=== PATIENT | male | born 1970 | race Two or more races ===

== ENCOUNTER 2017-04-22 13:38 | Emergency (ER) | payer OTHER ==
[~2017-04-22] VITALS: Ht 162.6 cm; Wt 81.6 kg
[2017-04-22] MEDS ORDERED: LIPITOR40 MG ORAL (13:49)
[2017-04-22] MEDS ORDERED: Albuterol ud Inhalation HHN ONE (14:00)
[2017-04-22] MEDS ORDERED: Ipratropium 0.02% Inh Soln 2.5ml UD HHN ONE (14:00)
[2017-04-22] MEDS ORDERED: PROAIR HFA8.5 GM INH (14:53)
[2017-04-22] MEDS ORDERED: IBUPROFEN600 MG ORAL (14:53)
[2017-04-22] MEDS ORDERED: PROMETHAZINE-C118 M1 ORAL (14:53)
[2017-04-22 15:02] VITALS: BP 115/76
--- NOTE | 2017-04-22 21:45 | Emergency Room Report ---
History of Present Illness General Chief Complaint: Upper Respiratory Illness Source: Patient (DARYL ALMANZAR) Present Illness HPI The patient is a 47 old male presenting for 5 days of coughing. He denies any known sick contacts or recent travel. He is experiencing an 8/10 dull ache to the mid chest which occurs with coughing only. Does not radiate. Also admits to subjective fever. He has tried [id number] medications which temporarily helped. He denies any other symptoms including hemoptysis, myalgia , CARLISLE, sore throat (DARYL ALMANZAR) Allergies: Coded Allergies: No Known Allergies (Unverified , 04/22/17) Patient History Past Medical History: see triage record Pertinent Family History: none Reviewed Nursing Documentation: PMH: Agreed, PSxH: Agreed (DARYL ALMANZAR) Review of Systems All Other Systems: negative except mentioned in HPI (DARYL ALMANZAR) Physical Exam Vital Signs Date Time Temp Pulse Resp B/P (MAP) Pulse Ox O2 Delivery O2 Flow Rate FiO2 04/22/17 13:43 100.0 95 20 112/71 93 Room Air 04/22/17 14:01 21 Sp02 EP Interpretation: reviewed, normal General Appearance: no apparent distress, alert, GCS 15, non-toxic Head: normocephalic, atraumatic Eyes: bilateral eye normal inspection, bilateral eye PERRL ENT: hearing grossly normal, normal pharynx, no angioedema, normal voice Neck: full range of motion, supple/symm/no masses Respiratory: no accessory muscle use, decreased breath sounds, wheezing - bilat Cardiovascular #1: regular rate, rhythm, no edema Musculoskeletal: back normal, gait/station normal, normal range of motion, non- tender Neurologic: alert, oriented x3, responsive, motor strength/tone normal, sensory intact, speech normal Psychiatric: judgement/insight normal, memory normal, mood/affect normal, no suicidal/homicidal ideation Skin: normal color, no rash, warm/dry, well hydrated Lymphatic: no adenopathy (DARYL ALMANZAR) Medical Decision Making PA Attestation Dr. Gorman is my supervising physician. Patient management was discussed with my supervising physician (DARYL ALMANZAR) Diagnostic Impression: Primary Impression: Acute bronchitis Qualified Codes: J20.9 - Acute bronchitis, unspecified ER Course The patient is a 47 old male presenting for 5 days of coughing. Differential diagnosis include but not limited to pharyngitis, sinusitis, AOM, bronchitis, PNA PE: afebrile. No tachypnea. No apparent distress. No TTP over maxillary or frontal sinuses. Lungs: diffuse wheezing. No accessory muscle use. No resp distress Heart: RRR, no abnormal heart sounds Ears: external auditory canal clear. Non erythematous. Bilat TM intact. Cone of light present bilat. No bulging of TM. No serous fluid seen. no nasal D/C No cervical lymphad No tonsillar exudate. Uvula midline.Oropharynx non erythematous CXR shows no acute findings Pt is given breathing Tx and feels better. Lung sounds have improved The patient will be discharged home with a prescription for albuterol, cough medication, motrin. ER precautions given (DARYL ALMANZAR P.A.) Chest X-Ray Diagnostic Results Chest X-Ray Diagnostic Results : Chest X-Ray Ordered: Yes # of Views/Limited/Complete: 1 View Indication: Other - cough PA Xray: Interpretation reviewed, by supervising MD, and agrees with findings. Interpretation: no consolidation, no effusion, no pneumothorax, no acute cardiopulmonary disease Impression: No acute disease Electronically Signed by: Daryl Almanzar PA-C (DARYL ALMANZAR P.A.) Chest X-Ray Diagnostic Results : PA Xray: Interpretation reviewed, by supervising MD, and agrees with findings. - Glenn Vences MD (Glenn Vences M.D.) Last Vital Signs Date Time Temp Pulse Resp B/P (MAP) Pulse Ox O2 Delivery O2 Flow Rate FiO2 04/22/17 15:02 99 20 115/76 95 Room Air 04/22/17 14:37 21 04/22/17 14:19 100.3 Status: improved (DARYL ALMANZAR P.A.) Disposition: HOME, SELF-CARE Condition: Improved Scripts Albuterol Sulfate* (PROAIR HFA*) 8.5 Gm Hfa.aer.ad 2 PUFFS INH Q6H, #8.5 GM 0 Refills Prov: DARYL ALMANZAR PCesario 04/22/17 Codeine/Promethazine Hcl* (PROMETHAZINE-CODEINE SYRUP*) 118 Ml Syrup 5 ML ORAL Q6H Y for For Cough, #118 ML 0 Refills Prov: DARYL ALMANZAR.Uche 04/22/17 Ibuprofen* (MOTRIN*) 600 Mg Tablet 600 MG ORAL Q8H Y for For Pain, #30 TAB 0 Refills Prov: DARYL ALMANZARA. 04/22/17 Referrals: NON PHYSICIAN [facility],REFERRING (PCP) Patient Instructions: Acute Bronchitis Additional Instructions: I discussed my findings with the patient. All questions and concerns have been answered. Treatment and medication compliance have been addressed. I advised the patient that they need to follow up with PMD in 3-5 days. Return to ED if pain remains or worsens, cough worsens or remains, you notice blood in your sputum, you notice wheezing, you experience a fever, or if needed for any reason. Patient verbalized understanding of discharge instructions. DARYL ALMANZAR Apr 22, 2017 21:45 Glenn Vences M.D. Apr 24, 2017 15:13
--- NOTE | 2017-04-23 10:53 | Diagnostic Imaging Report ---
Indication: Cough Comparison: None A single view chest radiograph was obtained. Findings: Cardiomediastinal appearance is within normal limits for age. Pulmonary vascularity is appropriate. The diaphragmatic contour is smooth and costophrenic angles are sharp. No pleural effusions are identified. The bones are unremarkable. Impression: No acute findings
== END 2017-04-22 15:04 | disposition home or self-care (01) ==
LOC: EMR 14:16
DX: J20.9 Acute bronchitis, unspecified (principal)
CPT/HCPCS: 71045; 94640; 99284

== ENCOUNTER 2018-05-13 15:10 | Emergency (ER) | payer OTHER ==
[~2018-05-13] VITALS: Ht 162.6 cm; Wt 90.7 kg
[~2018-05-13 15:10] MED LIST: IBUPROFEN600 MG ORAL; LIPITOR40 MG ORAL; PROAIR HFA8.5 GM INH; PROMETHAZINE-C118 M1 ORAL
[2018-05-13 15:23] VITALS: BP 124/82
--- NOTE | 2018-05-13 15:29 | Emergency Room Report ---
History of Present Illness General Chief Complaint: Abdominal Pain Source: Patient Present Illness Allergies: Coded Allergies: No Known Allergies (Unverified , 05/13/18) Nursing Documentation-[facility] Past Medical History: No History, Except For Physical Exam Vital Signs Date Time Temp Pulse Resp B/P (MAP) Pulse Ox O2 Delivery O2 Flow Rate FiO2 05/13/18 15:23 98.4 99 16 124/82 94 Room Air Medical Decision Making PA Attestation Dr. Vences is my supervising Physician whom patient management has been discussed with. Diagnostic Impression: Primary Impression: Enteritis Labs Test 05/13/18 15:40 05/13/18 15:45 White Blood Count 15.2 K/UL (4.8-10.8) Red Blood Count 4.99 M/UL (4.70-6.10) Hemoglobin 15.1 G/DL (14.2-18.0) Hematocrit 43.1 % (42.0-52.0) Mean Corpuscular Volume 86 FL (80-99) Mean Corpuscular Hemoglobin 30.3 PG (27.0-31.0) Mean Corpuscular Hemoglobin Concent 35.1 G/DL (32.0-36.0) Red Cell Distribution Width 12.2 % (11.6-14.8) Platelet Count 285 K/UL (150-450) Mean Platelet Volume 6.1 FL (6.5-10.1) Neutrophils (%) (Auto) 65.5 % (45.0-75.0) Lymphocytes (%) (Auto) 22.9 % (20.0-45.0) Monocytes (%) (Auto) 6.2 % (1.0-10.0) Eosinophils (%) (Auto) 4.5 % (0.0-3.0) Basophils (%) (Auto) 0.9 % (0.0-2.0) Sodium Level 140 MMOL/L (136-145) Potassium Level 3.7 MMOL/L (3.5-5.1) Chloride Level 104 MMOL/L (98-107) Carbon Dioxide Level 28 MMOL/L (21-32) Anion Gap 8 mmol/L (5-15) Blood Urea Nitrogen 14 mg/dL (7-18) Creatinine 0.9 MG/DL (0.55-1.30) Estimat Glomerular Filtration Rate > 60 mL/min (>60) Glucose Level 126 MG/DL (74-106) Calcium Level 9.0 MG/DL (8.5-10.1) Total Bilirubin 0.3 MG/DL (0.2-1.0) Aspartate Amino Transf (AST/SGOT) 18 U/L (15-37) Alanine Aminotransferase (ALT/SGPT) 31 U/L (12-78) Alkaline Phosphatase 113 U/L (46-116) Total Protein 8.3 G/DL (6.4-8.2) Albumin 3.8 G/DL (3.4-5.0) Globulin 4.5 g/dL Albumin/Globulin Ratio 0.8 (1.0-2.7) Lipase 148 U/L (73-393) Urine Color Yellow Urine Appearance Clear Urine pH 6.5 (4.5-8.0) Urine Specific [place] 1.015 (1.005-1.035) Urine Protein Negative (NEGATIVE) Urine Glucose (UA) Negative (NEGATIVE) Urine Ketones Negative (NEGATIVE) Urine Blood Negative (NEGATIVE) Urine Nitrite Negative (NEGATIVE) Urine Bilirubin Negative (NEGATIVE) Urine Urobilinogen Normal MG/DL (0.0-1.0) Urine Leukocyte Esterase 1+ (NEGATIVE) Urine RBC 0-2 /HPF (0 - 0) Urine WBC 2-4 /HPF (0 - 0) Urine Squamous Epithelial Cells None /LPF (NONE/OCC) Urine Bacteria Few /HPF (NONE) Last Vital Signs Date Time Temp Pulse Resp B/P (MAP) Pulse Ox O2 Delivery O2 Flow Rate FiO2 05/13/18 15:23 98.4 99 16 124/82 94 Room Air Disposition: HOME, SELF-CARE Condition: Stable Patient Instructions: Abdominal Pain, Adult Additional Instructions: Take medications as directed. Follow up with a Primary Care Provider in 3-5 days, even if your symptoms have resolved. --Please review list of primary care clinics, if you do not already have a primary care provider Return sooner to ED if new symptoms occur, or current symptoms become worse. - Please note that this Emergency Department Report was dictated using [employer] nurse technology software, occasionally this can lead to erroneous entry secondary to interpretation by the dictation equipment. Whit Aggarwal May 13, 2018 15:28
--- NOTE | 2018-05-13 15:58 | NUR ---
ED Nurse Note: PT. AAOX4. AMBULATORY. C/O RLQ PAIN WITH BURNING SENSATION DURING URINATION. PT LAST BM WAS THIS MORNING. DENIES DIARRHEA
[2018-05-13 16:10] LABS: APPEARANCE,URINE CLEAR; BILIRUBIN, URINE NEGATIVE (NEGATIVE); GLUCOSE, URINE (UA) NEGATIVE (NEGATIVE); KETONES,URINE NEGATIVE (NEGATIVE); LEUKOCYTE ESTERASE ,URINE 1+ (NEGATIVE); NITRITE,URINE NEGATIVE (NEGATIVE); PH,URINE 6.5 (4.5-8.0); PROTEIN,URINE NEGATIVE (NEGATIVE); UROBILINOGEN,URINE NORMAL MG/DL (0.0-1.0)
[2018-05-13 16:13] LABS: COLOR,URINE YELLOW
[2018-05-13 16:15] LABS: BASOPHILS % (AUTO) 0.9 % (0.0-2.0); EOSINOPHILS % (AUTO) 4.5 % (0.0-3.0); HEMATOCRIT 43.1 % (42.0-52.0); HEMOGLOBIN 15.1 G/DL (14.2-18.0); LYMPHOCYTES % (AUTO) 22.9 % (20.0-45.0); MEAN CORPUSCULAR VOLUME 86 FL (80-99); MONOCYTES % (AUTO) 6.2 % (1.0-10.0); NEUTROPHILS % (AUTO) 65.5 % (45.0-75.0); PLATELET COUNT 285 K/UL (150-450); RED BLOOD COUNT 4.99 M/UL (4.70-6.10); RED CELL DISTRIBUTION WIDTH 12.2 % (11.6-14.8); WHITE BLOOD COUNT 15.2 K/UL (4.8-10.8)
[2018-05-13 16:16] LABS: ANION GAP 8 mmol/L (5-15); BLOOD UREA NITROGEN 14 mg/dL (7-18); CARBON DIOXIDE 28 MMOL/L (21-32); CHLORIDE 104 MMOL/L (98-107); CREATININE 0.9 MG/DL (0.55-1.30); POTASSIUM 3.7 MMOL/L (3.5-5.1); SODIUM 140 MMOL/L (136-145)
[2018-05-13 16:28] LABS: ALANINE AMINOTRANSFERASE 31 U/L (12-78); ALBUMIN 3.8 G/DL (3.4-5.0); ALBUMIN/GLOBULIN RATIO 0.8 (1.0-2.7); ALKALINE PHOSPHATASE 113 U/L (46-116); ASPARTATE AMINO TRANSFERASE 18 U/L (15-37); BILIRUBIN,TOTAL 0.3 MG/DL (0.2-1.0)
--- NOTE | 2018-05-13 17:01 | Diagnostic Imaging Report ---
Indication: Abdominal pain Technique: Rouse-scale and duplex images of the upper abdomen were obtained. Doppler interrogation of the hepatic and pancreatic vessels Comparison: none Findings: Exam is somewhat limited due to patient body habitus and overlying bowel gas. Gallbladder is nondistended. No definite stones. There is equivocal mild wall thickening, probably an artifact of under distention. No pericholecystic fluid. Sonographic Day's sign is negative. Common bile duct measures 2 mm in diameter. No intrahepatic biliary ductal dilatation. Liver demonstrates diffusely increased echogenicity, consistent with diffuse hepatocellular disease, most likely fatty change. Portal vein and hepatic veins are patent. Pancreas is obscured by bowel gas. Spleen is unremarkable. Left kidney measures 11.9 cm in length. Right kidney measures 12 cm length. Both kidneys demonstrate normal echogenicity. There is no hydronephrosis. No focal abnormality . Abdominal aorta is partially obscured by bowel gas, visualized portions are non-aneurysmal . Impression: Limited exam as described. Note inability to visualize the pancreas and portions of the abdominal aorta Negative for gallstones or dilated bile ducts. Apparent mild gallbladder wall thickening is probably an artifact of under distention Liver demonstrates diffusely increased echogenicity, consistent with diffuse hepatocellular disease, most likely fatty change.
[2018-05-13] MEDS ORDERED: Morphine Sulfate 2mg/ml Inj(IV/IM USE ONLY) IVP ONE (17:15)
[2018-05-13] MEDS ORDERED: Isovue-300 100ml vial INJ PRN (17:15)
--- NOTE | 2018-05-13 19:05 | NUR ---
ED Nurse Note: Received Pt and report from day shift. Knowing Pt will DC soon, will prepare DC papers.
[2018-05-13] MEDS ORDERED: LEVOFLOXACIN500 MG ORAL (19:20)
[2018-05-13] MEDS ORDERED: LIDOCAINE VISC100 ML ORAL (19:20)
[2018-05-13] MEDS ORDERED: METRONIDAZOLE250 MG ORAL (19:20)
[2018-05-13] MEDS ORDERED: NORCO 5-325 TA1 EACH ORAL (19:20)
[2018-05-13 19:30] VITALS: BP 133/78
--- NOTE | 2018-05-13 19:30 | NUR ---
ER DISCHARGE NOTE: Patient is cleared to be discharged per ERMD, pt is aox4, on room air, with stable vital signs. pt was given dc and prescription instructions, pt was able to verbalize understanding, pt id band and iv site removed without complications. pt is able to ambulate with steady gait. pt took all belongings.
--- NOTE | 2018-05-14 09:17 | Diagnostic Imaging Report ---
Clinical Indication: And lower quadrant pain with burning sensation Technique: No oral contrast utilized, per emergency room physician request IV administration nonionic contrast. Venous phase spiral acquisition obtained through the abdomen and pelvis. Multiplanar reconstructions were generated. Total dose length product 1037.93 mGycm. CTDIvol(s) 18.84 mGy. Dose reduction achieved using automated exposure control Comparison: none Findings: The appendix is normal. There are scattered colonic diverticula. No evidence of diverticulitis. Distal small bowel loops are mildly prominent in caliber and fluid-filled, but not frankly distended. No free or loculated intraperitoneal gas or fluid is evident. The distal esophagus, stomach, duodenum are unremarkable. No retroperitoneal or mesenteric mass or adenopathy. No pelvic mass or adenopathy. The liver, gallbladder, bile ducts, pancreas, spleen, adrenals, kidneys are unremarkable. No pelvic mass or adenopathy. No retroperitoneal or mesenteric mass or adenopathy. The bladder wall appears mildly thickened, but this is probably an artifact of under distention The included lung bases demonstrate a calcified granuloma on the right. There is a 3 mm intrafissural nodule on the left, most likely an intrafissural lymph node. They are otherwise clear. The bones are unremarkable. Impression: Apparent bladder wall thickening. Most likely artifact of under distention, but possibly cystitis should be considered. Correlate with clinical and laboratory findings. Mildly prominent fluid-filled distal small bowel loops. May be baseline for this patient or could indicate minimal enteritis changes. Correlate with clinical findings No acute process otherwise Evidence of old granulomatous disease at the right lung base This agrees with the preliminary interpretation provided overnight by [facility] telerad[facility] service. The CT scanner at [facility] is accredited by the [employer] and the scans are performed using protocols designed to limit radiation exposure to as low as reasonably achievable to attain images of sufficient resolution adequate for diagnostic evaluation.
== END 2018-05-13 19:30 | disposition home or self-care (01) ==
LOC: EMR 15:58
DX: K52.9 Noninfective gastroenteritis and colitis, unspecified (principal)
CPT/HCPCS: 36415; 74177; 76700; 80053; 81003; 83690; 85025; 96374; 99284; J2270; Q9967

== ENCOUNTER 2018-09-29 21:48 | Emergency (ER) | payer OTHER ==
[~2018-09-29] VITALS: Ht 162.6 cm; Wt 94.3 kg
[~2018-09-29 21:48] MED LIST changes: +LEVOFLOXACIN500 MG ORAL; +LIDOCAINE VISC100 ML ORAL; +METRONIDAZOLE250 MG ORAL; +NORCO 5-325 TA1 EACH ORAL
--- NOTE | 2018-09-29 21:59 | NUR ---
ED Nurse Note: pt walked in c/o left side weakness s/p fall, pt states he was walking down stairs and fell, denies weakness or dizziness, denies head injury nor loc, no obvious deformity nor open wound, noted minor scrape on left shoulder and redness on left rib area, will cont monitor.
[2018-09-29] MEDS ORDERED: HYDROcodone/Acetamin 5/325 tab ORAL ONE (22:00)
--- NOTE | 2018-09-29 22:03 | Emergency Room Report ---
History of Present Illness General Chief Complaint: Multiple Trauma/Fall Source: Patient Present Illness HPI This is a 48-year-old male with no past medical history. He presents with left rib pain. Around noon today he slipped and fell and when he tried to get up he slipped again and landed on the floor. He now complains of left rib pain. Worse when he took a deep breath. Worse when he moves. Pain is 8 out of 10. No nausea no vomiting. Did not pass out. No other injury other than twisted his right ankle. Is able to walk on it without any problem. Allergies: Coded Allergies: No Known Allergies (Unverified , 05/13/18) Patient History Past Medical History: see triage record, old chart reviewed Past Surgical History: none Pertinent Family History: none Social History: Denies: smoking Immunizations: other Reviewed Nursing Documentation: PMH: Agreed; PSxH: Agreed Nursing Documentation-PM Past Medical History: No History, Except For Review of Systems Eye: Denies: eye pain, blurred vision ENT: Denies: ear pain, nose congestion, throat swelling Respiratory: Denies: cough, shortness of breath Cardiovascular: Reports: chest pain; Denies: palpitations Gastrointestinal: Denies: abdominal pain, diarrhea, nausea, vomiting Musculoskeletal: Denies: back pain, joint pain Skin: Denies: rash Neurological: Denies: headache, numbness Endocrine: Denies: increased thirst, increased urine Hematologic/Lymphatic: Denies: easy bruising All Other Systems: negative except mentioned in HPI Physical Exam Vital Signs Date Time Temp Pulse Resp B/P (MAP) Pulse Ox O2 Delivery O2 Flow Rate FiO2 09/29/18 21:53 98.2 85 16 146/101 (116) 96 Room Air Vitals with hypertension Sp02 EP Interpretation: reviewed, normal General Appearance: well appearing, no apparent distress, alert Head: normocephalic, atraumatic Eyes: bilateral eye PERRL, bilateral eye EOMI ENT: hearing grossly normal, normal pharynx Neck: full range of motion, supple, no meningismus Respiratory: lungs clear, normal breath sounds, other - Tenderness to the mid axillary line around the T4-T5 area on left side. Cardiovascular #1: regular rate, rhythm, no murmur Gastrointestinal: normal bowel sounds, non tender, no mass, no organomegaly, no bruit, non-distended Musculoskeletal: back normal, gait/station normal, normal range of motion Psychiatric: mood/affect normal Medical Decision Making Diagnostic Impression: Primary Impression: Contusion of rib on left side Qualified Codes: S20.212A - Contusion of left front wall of thorax, initial encounter ER Course Presents with a fall and left-sided rib pain. No obvious displaced rib fracture. May have a nondisplaced fracture and I am not seen on the x-ray. Treatment is the same. No evidence of pneumothorax. No evidence of respiratory distress. Will discharge home. Other X-Ray Diagnostic Results Other X-Ray Diagnostic Results : X-Ray ordered: Left rib x-rays # of Views/Limited Vs Complete: Complete Indication: Pain EP Interpretation: Yes Interpretation: no dislocation, no soft tissue swelling, no fractures, nonspecific bowel gas Impression: No acute disease Electronically Signed by: Andrés Faith MD Last Vital Signs Date Time Temp Pulse Resp B/P (MAP) Pulse Ox O2 Delivery O2 Flow Rate FiO2 09/29/18 21:53 98.2 85 16 146/101 (116) 96 Room Air Status: improved Disposition: HOME, SELF-CARE Condition: Stable Scripts Ibuprofen* (MOTRIN*) 600 Mg Tablet 600 MG ORAL THREE TIMES A DAY, #30 TAB 0 Refills Prov: Andrés Faith MD 09/29/18 Additional Instructions: Follow-up with your doctor in 7 days. Return if symptoms worsen. Andrés Faith MD Sep 29, 2018 22:03
[2018-09-29 22:08] VITALS: BP 135/75
[2018-09-29] MEDS ORDERED: IBUPROFEN600 MG ORAL (22:28)
[2018-09-29 22:35] VITALS: BP 137/86
--- NOTE | 2018-09-29 22:35 | NUR ---
ED Nurse Note: pt cleared to be d/c per ERMD, pt discharge and aftercare instruction provided w/ prescription, pt education done via discussion and handout, pt advised to follow up with pcp or return to ed if changes in condition, pt verbalized understanding and agrees with plan, vss, ambulatory w/ steady gait, left w/ all belongings.
--- NOTE | 2018-09-30 12:23 | Diagnostic Imaging Report ---
Indication: Trauma, chest pain status post fall Technique: One view of the chest, 2 views of the left ribs Comparison: 04/22/2017 Findings: The lungs and pleural spaces are clear. The heart size is normal. There is no evidence of rib fracture. No pneumothorax. Impression: Negative
== END 2018-09-29 22:35 | disposition home or self-care (01) ==
LOC: EMR 22:08
DX: S20.212A Contusion of left front wall of thorax, initial encounter (principal); W01.0XXA Fall on same level from slipping, tripping and stumbling without subsequent striking against object, initial encounter; Y92.9 Unspecified place or not applicable
CPT/HCPCS: 99283